=== PATIENT | female | born 2000 | race African-American/Black ===

== ENCOUNTER 2022-05-30 23:24 | Emergency (ER) | payer SELFPAY ==
[~2022-05-30] VITALS: Ht 165.1 cm; Wt 64.0 kg
[2022-05-30 23:28] VITALS: BP 119/70
[2022-05-31 00:38] LABS: BASOPHILS % 0.4 % (0.0-2.0); EOSINOPHILS % 1.1 % (0.0-5.0); HEMATOCRIT. 37.5 % (36.0-48.0); HEMOGLOBIN. 12.1 g/dL (12.0-16.0); LYMPHOCYTES % 15.8 % (20.0-50.0); MEAN CORPUSCULAR HEMOGLOBIN 23.9 pg (28.0-32.0); MEAN CORPUSCULAR VOLUME 74.1 fL (81.0-99.0); MEAN PLATELET VOLUME 8.1 fl (7.4-10.4); MONOCYTES % 6.3 % (2.0-8.0); NEUTROPHILS % 76.4 % (40.0-76.0); PLATELET 352 x1000/uL (130-400); RED BLOOD CELL COUNT 5.06 mill/uL (4.2-5.4); RED CELL DISTRIBUTION WIDTH 13.5 % (11.6-14.6)
[2022-05-31 00:41] LABS: CHLORIDE 105 mEq/L (98-107)
[2022-05-31 00:58] LABS: ETHANOL BLOOD < 10 mg/dL
== END 2022-05-31 01:30 | disposition left against medical advice (07) ==
LOC: ER 23:43
DX: F41.9 Anxiety disorder, unspecified (principal); F12.10 Cannabis abuse, uncomplicated
CPT/HCPCS: 36415; 80053; 80307; 80320; 80329; 84443; 85025; 99283; G0480